=== PATIENT | male | born 1960 | race Caucasian/White ===

== ENCOUNTER → 2025-04-17 14:38 | Outpatient (REF) | payer MEDICARE, SELFPAY | LOC: HWRCS 14:38 | PROVIDERS: ATTENDING PHYSICIAN Internal Medicine Cardiovascular Disease; FAMILY PHYSICIAN Family Medicine | DX: I45.10 Unspecified right bundle-branch block (principal); I42.8 Other cardiomyopathies | CPT/HCPCS: 93306 ==